=== PATIENT | female | born 1990 | race Caucasian/White ===

== ENCOUNTER → 2017-04-02 | Outpatient (CLI) | payer BC ==
[2014-06-21 09:14] VITALS: BP 112/63
--- NOTE | 2017-04-02 10:18 | VAS ---
History: Right leg pain and edema Study: Doppler ultrasound of the deep veins of the right lower extremity Findings: There is good color Doppler blood flow and augmentation and compression of the veins of the right lower extremity. Impression: No evidence for deep venous thrombosis Reported By:
== END ==
LOC: RAD 09:28
PROVIDERS: ATTEND Nurse Practitioner Family
DX: M79.669 Pain in unspecified lower leg (principal)
CPT/HCPCS: 93971

== ENCOUNTER → 2017-04-23 | Outpatient (CLI) | payer BC ==
[2014-06-21 09:14] VITALS: BP 112/63
--- NOTE | 2017-04-23 11:05 | RAD ---
HISTORY: Knee Pain. Study: Complete two view series of the right knee joint. Comparison: None available. Findings: No acute fracture, subluxation, or dislocation is identified. The medial and lateral tibiofemoral co mpartments appear unremarkable without loss of significant joint space. The lateral radiograph fails to demonstrate a visible joint effusion. Patellofemoral compartment is unremarkable in appearance. No lytic or bone forming lesions are seen. No high-grade osteochondral defects are observed. No unexp ected radiopaque foreign bodies are seen. There is no evidence for significant degenerative arthrosis . No focal joint erosions are seen, either. IMPRESSION: 1. Negative right knee joint exam. Reported By:
== END ==
LOC: RAD 10:19
PROVIDERS: ATTEND Nurse Practitioner Family
DX: M79.604 Pain in right leg (principal)
CPT/HCPCS: 73560